=== PATIENT | male | born 1970 | race Caucasian/White ===

== ENCOUNTER → 2020-12-15 | Outpatient (CLI) | payer OTHER ==
--- NOTE | 2020-12-16 09:35 | REP ---
INDICATION: IMPINGEMENT SYNDROME OF LEFT SHOULDER. COMPARISON: None. TECHNIQUE: Coronal oblique T1, T2 fat sat, sagittal oblique T2 fat sat, axial T2 fat sat, gradient echo. FINDINGS: Rotator cuff: There is a full-thickness partial tear at the anterior leading edge of the distal supraspinatus tendon. There are scattered areas of tendinopathy/tendinitis involving the supraspinatus, subscapularis and infraspinatus tendons. Acromioclavicular joint: There are moderate hypertrophic degenerative changes of the acromioclavicular joint with mild fluid in the joint and mild subchondral marrow edema. Acromion: Type 1 Biceps Tendon: The biceps tendon is in the bicipital groove and is surrounded by a moderate amount of complex fluid which likely indicates tenosynovitis. Hill Sach's deformity: None. Deltoid muscle: No abnormal signal. Biceps labral complex: There is tear at the base of the biceps labral complex. Labrum: There is a diffuse SLAP tear. The anterior labrum and inferior labrum are torn. Cartilage: There is moderate to severe diffuse chondromalacia at the glenohumeral joint. Bone marrow: There is subchondral marrow edema in the humeral head and glenoid. Joint fluid: There is a moderate complex joint effusion with diffuse synovial thickening. IMPRESSION: Full-thickness partial tear anterior leading edge of distal supraspinatus tendon. Tendinopathy/tendinitis of supraspinatus, infraspinatus and subscapularis tendons. Moderate hypertrophic degenerative change acromioclavicular joint. Biceps tendon is surrounded by a moderate amount of complex fluid suggesting tenosynovitis. Diffuse SLAP tear also involves the base of the biceps labral complex. The anterior and inferior labrum are also torn. Moderate to severe chondromalacia at the glenohumeral joint with subchondral marrow edema. Complex joint effusion with diffuse synovial thickening. <Electronically signed by Cooper Neves > 12/16/20 [id number]
== END ==
LOC: M RAD 16:14
PROVIDERS: ATTEND Orthopaedic Surgery
DX: M75.42 Impingement syndrome of left shoulder (principal); S43.432A Superior glenoid labrum lesion of left shoulder, initial encounter; X58.XXXA Exposure to other specified factors, initial encounter; Y92.9 Unspecified place or not applicable; M94.212 Chondromalacia, left shoulder; M25.412 Effusion, left shoulder